=== PATIENT | female | born 1980 | race Caucasian/White ===

== ENCOUNTER → 2019-09-29 08:44 | Outpatient (CLI) | payer MEDICAID, SELFPAY ==
--- NOTE | 2019-09-29 08:56 | RAD_ITS ---
STUDY: AIR-CONTRAST ESOPHAGRAM STUDY REASON FOR EXAM: Female, 38 years old. Difficulty swallowing FLUOROSCOPY TIME (if supplied): (0:30) minutes/seconds, 12 images. TECHNIQUE: Barium pill swallow with sips of water is performed at the beginning of the study without difficulty. Multiple barium swallows were performed under fluoroscopic monitoring. Multiple views of the esophagus, the upper stomach were performed. COMPARISON: None. FINDINGS: Barium pill swallow with sips of water is performed at the beginning of the study without difficulty. The esophagus appears normal in size and shape it shows unremarkable mucosal pattern. There is small intermittent hiatal hernia with transient gastroesophageal reflux. . RAD/Esophagus Dual Contrast IMPRESSION: There is small intermittent hiatal hernia with single episode of gastroesophageal reflux. Electronically Signed: Carlitos Meza, at 12:09 EDT Tel , Service support ,
== END ==
PROVIDERS: PCP Student in an Organized Health Care Education/Training Program; Referring Provider Otolaryngology; Visit Provider Otolaryngology
DX: R13.10 Dysphagia, unspecified (principal)
CPT/HCPCS: 74221

== ENCOUNTER → 2021-06-02 | Outpatient (CLI) | payer MEDICAID, SELFPAY ==
[2021-06-02 08:59] LABS: Absolute Neutrophil Count 4.1 X10^3/uL (2.0-7.7); Basophil# 0.05 X10^3/uL; Basophil% 0.8 % (0-1); Eosinophil# 0.13 X10^3/uL; Eosinophils% 2.1 % (0-5); Hematocrit 41.2 % (37-47); Lymphocyte % 24.1 % (19-41); Mean Corpuscular Hgb 32.8 pg (27.0-32.0); Mean Corpuscular Volume 96.5 fL (81-99); Mean Platelet Vol. 12.2 fl (6.2-12.0); Monocyte# 0.45 X10^3/uL; Monocyte% 7.2 % (0-10); NRBC Flagged by Analyzer 0 % (0-5); Neutrophil # 4.09 X10^3/uL (2.7-7.7); Neutrophil % 65.6 % (47-70); Platelet Count 175 K/mm3 (150-450); RBC Distribution Width SD 42.6 fl (35.1-43.9); Red Blood Count 4.27 M/mm3 (4.2-5.4); White Blood Count 6.2 K/mm3 (4.4-11.0)
[2021-06-02 09:10] LABS: Anion Gap 5 (5-15); BUN 21 mg/dL (7-18); Calcium,Total 8.9 mg/dL (8.5-10.1); Chloride 111 mmol/L (98-107); Creatinine, Serum 0.72 mg/dL (0.55-1.02); EST Glomerular Filtration Rate 94 mL/min (>60); Est Glom Filt Rate - Afr Amer 114 mL/min (>60); Glucose 100 mg/dL (74-106); Potassium 4.2 mmol/L (3.5-5.1); Sodium Level 137 mmol/L (136-145)
[2021-06-02 09:15] LABS: hCG Titer Quant., Serum < 1 mIU/mL (1-3)
--- NOTE | 2021-06-02 17:25 | PCM.TILTTABL ---
Staff Staff: Antoinette Johnson and - (Ebony Medrano) Summary Pre Test Resting HR: 63 Pre Test Resting BP: 111/77 Minimum Test HR: 67 Maximum Test HR: 77 Minimum Test BP: 105/76 Maximum Test BP: 120/69 Reason for Test Termination: Reached Maximum Test Time Physician Tilt Table Report Patient's Physicians Primary Care Physician: Chandler Fleming [employer] Supervisor: Merlin Tejeda Indications/Diagnosis: Dizziness/lightheadedness Procedure Comments: The patient was brought to the tilt table laboratory and laid supine on the tilt table. The patient was awake and alert and warm and dry. The baseline heart rate was 63 bpm with a baseline blood pressure of 111/77 mmHg. The cardiac rhythm was normal sinus rhythm. The patient was placed in the 70 degree upright tilt table position for approximately 30 minutes. The patient remained alert and oriented and warm and dry. The minimal heart rate was 67 bpm with a minimal blood pressure 105/76 mmHg and a maximal heart rate of 76 bpm with a maximal blood pressure 120/69 mmHg. The cardiac rhythm remained normal sinus rhythm. The patient complained at initiation of the study of slightly lightheaded , during the study of feet sleep , and near the end of the study of little dizzy . The patient did not lose consciousness. The patient was returned to the supine position. In the supine position the patient remained alert and oriented and warm and dry. The concluding heart rate was 62 bpm with a concluding blood pressure 116/75 mmHg. The cardiac rhythm remained sinus rhythm. Summary: 70 degree upright tilt table study considered negative for evidence of reproducible vasovagal/neurocardiogenic syncope. This note was generated using a voice recognition system and there may be incorrect words, spelling or punctuation that were not noted when reviewing the office note prior to saving.
[2021-06-02 17:33] VITALS: BP 105/76; BP 111/77; BP 120/69
== END | disposition home or self-care (01) ==
LOC: CVS 08:36
PROVIDERS: PCP Student in an Organized Health Care Education/Training Program; Referring Provider Student in an Organized Health Care Education/Training Program; Visit Provider Student in an Organized Health Care Education/Training Program
DX: I95.9 Hypotension, unspecified (principal); R00.2 Palpitations; R42 Dizziness and giddiness
CPT/HCPCS: 36415; 80048; 84702; 85025; 93660; J7040; A4216